=== PATIENT | female | born 1960 | race Caucasian/White ===

== ENCOUNTER 2023-08-23 11:42 | Day surgery (SDC) | payer OTHER ==
[2023-07-19 15:59] VITALS: BMI 22.1
[2023-08-23 11:58] VITALS: RESP 18
[2023-08-23] MEDS ORDERED: PROPOFOL 80 ML ONE (13:05)
[2023-08-23 13:47] VITALS: PULSE 68; TEMP 98
[2023-08-23 13:53] VITALS: BP 105/45
== END 2023-08-23 14:03 | disposition home or self-care (01) ==
LOC: FASU-ENDO 11:42
PROVIDERS: ATTEND Internal Medicine Gastroenterology
PROC: 0DBH8ZX Excision of Cecum, Via Natural or Artificial Opening Endoscopic, Diagnostic (ICD-10-PCS; principal; 2023-08-23 13:02)
DX: Z12.11 Encounter for screening for malignant neoplasm of colon (principal); K63.5 Polyp of colon; K57.30 Diverticulosis of large intestine without perforation or abscess without bleeding; K64.1 Second degree hemorrhoids; K64.8 Other hemorrhoids; R19.5 Other fecal abnormalities

== ENCOUNTER 2024-03-20 08:49 | Day surgery (SDC) | payer OTHER ==
[2024-03-14 15:03] VITALS: BMI 20.9
[2024-03-20 09:09] VITALS: RESP 18
[2024-03-20 10:21] VITALS: TEMP 97.6
[2024-03-20 10:44] VITALS: BP 105/60; PULSE 58
== END 2024-03-20 10:44 | disposition home or self-care (01) ==
LOC: FASU-ENDO 08:49
PROVIDERS: ATTEND Internal Medicine Gastroenterology
PROC: 0DJD8ZZ Inspection of Lower Intestinal Tract, Via Natural or Artificial Opening Endoscopic (ICD-10-PCS; principal; 2024-03-20 09:53)
DX: Z12.11 Encounter for screening for malignant neoplasm of colon (principal); K64.1 Second degree hemorrhoids; K64.8 Other hemorrhoids; K57.30 Diverticulosis of large intestine without perforation or abscess without bleeding